=== PATIENT | male | born 1975 | race Caucasian/White ===

== ENCOUNTER 2018-01-20 19:16 | Emergency (ER) | payer OTHER ==
[~2018-01-20] VITALS: Ht 162.6 cm; Wt 77.1 kg
[~2018-01-20 19:16] MED LIST: AMOX500 PO; Bactrim 400-801 EACH PO; CEPH500 PO; CLIN300 PO; HYDACE5 PO; NAPR500 PO; Norco 5-325 Ta1 EACH PO; PENVK500 PO; Vibramycin100 MG PO; [UNRECOGNIZED DRUG - OTHER] MM
[2018-01-20] MEDS ORDERED: Ultram50 MG PO (21:46)
== END 2018-01-20 21:55 | disposition home or self-care (01) ==
LOC: ER 19:16
DX: S40.012A Contusion of left shoulder, initial encounter (principal); V29.9XXA Motorcycle rider (driver) (passenger) injured in unspecified traffic accident, initial encounter
CPT/HCPCS: 73030; 99284-25

== ENCOUNTER → 2019-07-20 | Outpatient (CLI) | payer OTHER ==
[~2019-07-20] MED LIST changes: +Ultram50 MG PO
== END ==
LOC: LAB SHORT 16:34 → LAB EV 16:34
DX: L02.416 Cutaneous abscess of left lower limb (principal)
CPT/HCPCS: 87070; 87075; 87077; 87147; 87186; 87205